=== PATIENT | male | born 1990 | race Hispanic/Latino ===

== ENCOUNTER 2017-06-06 10:47 | Emergency (ER) | payer SELFPAY ==
[~2017-06-06] VITALS: Ht 165.1 cm; Wt 72.7 kg
--- NOTE | 2017-06-06 11:05 | ED.REPORT ---
HPI-Chest Pain Under 40 Date of Service Jun 06, 2017 ED Provider: Rey Bess DO The pt is a 26 y/o male presenting to the ED from complaining of chest pain onset two days ago. The pain is intermittent, not associated w/ activity, is rated as a 3-4/10, and he describes it feeling like something fell. The pt does not feel like there is food stuck in his esophagus. Nursing Notes Stated Complaint: CHEST PAIN Chief Complaint: Chest pain Nursing Notes Reviewed: Yes Allergies: Coded Allergies: No Known Allergies (Unverified Allergy, Unknown, 06/06/17) Scheduled Famotidine (Pepcid) 40 Mg Tablet 40 MG PO BID General Time Seen by MD: 10:54 Chief Complaint Chest pain Hx Obtained From: Patient Arrived By: Walk-in Sudden in Onset?: Yes Onset Occurred: 2 days ago Symptom Duration: Since onset Recent Healthcare: No recent hospitalization, Recent doctor visit Similar Sx Previous: No Past Medical History Past Medical History None reported Past Surgical History None reported Family History No family hx of heart disease Smoking History Current Some Day Smoker Social History Alcohol Use: "Social" Drug Use: Denies drug use Ambulatory Status Independent Review of Systems Cardiovascular: Reports: Chest pain Complete sys rev & neg: except as marked. Physical Exam Initial Vital Signs Vital Signs (First) Date Time Temp Pulse Resp B/P Pulse Ox O2 Delivery O2 Flow Rate FiO2 06/06/17 11:10 36.7 73 22 132/84 Room Air 06/06/17 12:00 100 Initial VS: Reviewed Head / Eyes: Atraumatic, Normocephalic, PERRL ENT: Mucous membranes moist, Conjunctiva normal, No scleral icterus Neck: Supple, Non-tender, Full range of motion Extremities: Vascular intact, Neuro intact, No swelling, No tenderness Skin: Warm, Dry, No cyanosis Neurologic: Alert, Oriented, Nonfocal Psychiatric: Mood/affect normal, Behavior normal, Normal thought content General/Constitutional: Awake, Alert Respiratory / Chest: Atraumatic, Breath sounds NL, Breath sounds = bilat Cardiovascular: Heart rate NL, Regular rhythm, Heart sounds NL Interpretation & Diagnostics Lab Results Interpretation Result Diagram: 06/06/17 1126 06/06/17 1126 Test 06/06/17 11:26 White Blood Count 5.9th/mm3 (3.8-10.1) Red Blood Count 4.44mil/mm3 (4.40-5.80) Hemoglobin 14.8g/dL (13.8-17.2) Hematocrit 41.5% (41.0-50.0) Mean Corpuscular Volume 93.5fL (81-100) Mean Corpuscular Hemoglobin 33.3pg (27.0-35.0) Mean Corpuscular Hemoglobin Concent 35.7% (32.0-37.0) Red Cell Distribution Width 12.3% (12.3-15.4) Platelet Count 332bil/L (150-400) Neutrophils (%) (Auto) 59.9% (40-74) Lymphocytes (%) (Auto) 28.3% (14-46) Monocytes (%) (Auto) 8.2% (4-12) Eosinophils (%) (Auto) 3.1% (0-5) Basophils (%) (Auto) 0.3% (0-3) Sodium Level 140mEq/L (134-144) Potassium Level 3.9mEq/L (3.5-5.2) Chloride Level 103mEq/L (97-108) Carbon Dioxide Level 22mmol/L (18-29) Blood Urea Nitrogen 14mg/dL (6-20) Creatinine 0.76mg/dL (0.76-1.27) Estimat Glomerular Filtration Rate 131mL/min (>59) Glucose Level 82mg/dL (60-99) Calcium Level 8.8mg/dL (8.5-10.1) Magnesium Level 1.9mg/dL (1.6-2.6) Total Bilirubin 0.4mg/dL (0.0-1.2) Aspartate Amino Transf (AST/SGOT) 29U/L (0-50) Alanine Aminotransferase (ALT/SGPT) 22U/L (0-44) Alkaline Phosphatase 67U/L (25-150) Troponin T 0.010ug/L (0.0-0.011) Total Protein 7.3g/dL (6.4-8.4) Albumin 4.4g/dL (3.4-5.0) ECG Interpretation ECG Interpretation: Rate [address] elevation, probable normal early repol pattern Time: 11:19 Interpreted by: ED physician X-Ray Chest Interpretation Chest Xray Interpretation: IMPRESSION: No acute cardiopulmonary disease process. Dictated by: Joy Bowers MD, PhD on 06/06/2017 at 10:34 Approved by: Joy Bowers MD, PhD on 06/06/2017 at 10:34 View: Portable, 1 view Interpretation / Wet Read by: Interpret - Radiologist Re-Eval/Medical Decision Re-Evaluation/Progress : Time of Eval: 12:44 Re-Evaluation/Progress Note: Pt rechecked. Informed pt of plan for treatment. Pt understands and agrees with plan for treatment. F/U instructions and RTER warnings given. All questions addressed. Counseled Regarding: Diagnosis, Lab results, Need for follow-up, When/why to return to ED Discharge & Departure Primary Impression: Non-cardiac chest pain Disposition: Home Discharge Condition All VS Reviewed: Yes Condition: Stable Additional Instructions: The tests all looked normal. You are not having a problem with your heart. Please take the medication as prescribed and follow up with the primary care provider attached. Please stay away from coffee, spicy foods, soda, alcohol, and tobacco. Return to the ER as needed for worsening symptoms. -- Los estudios todos salieron normales. Usted no tiene problema del asif. Favor de kathi las medicina charla indicada y acude seguimiento con el medico de cabecera lo cual el nombre sigue. Evite kathi cafe, comidas picantes,soda, alcohol y tabaco. Regrese a la rene de emergencias charla necesite para sntomas que empeoran. Referrals: Sonia Healy MD Scribe Attestation Portions of this note were transcribed by Ger Dowd. I, Dr. Bess personally performed the history, physical exam and medical decision-making; I reviewed and confirmed the accuracy of the information in the transcribed note. copies to: Sonia Healy MD, Timothy S DO Jun 06, 2017 11:05 Ger Dowd Jun 06, 2017 11:30
[2017-06-06 11:10] VITALS: BP 132/84; PULSE 73; RESP 22
[2017-06-06] MEDS ORDERED: Ondansetron 2 mg/mL 2 mL Inj IVPUSH ONE (11:15)
[2017-06-06] MEDS ORDERED: LidocaineVisc 2%:Antacid 1:1 10 mL Syringe PO ONE (11:15)
[2017-06-06] MEDS ORDERED: Ketorolac 15 mg/mL Inj IVPUSH ONE (11:15)
[2017-06-06 11:34] LABS: BASOPHILS % (AUTO) 0.3 % (0-3); EOSINOPHILS % (AUTO) 3.1 % (0-5); MONOCYTES % (AUTO) 8.2 % (4-12); Mean Corpuscular Hemoglobin 33.3 pg (27.0-35.0); Mean Corpuscular Volume 93.5 fL (81-100); NEUTROPHILS % (AUTO) 59.9 % (40-74); Platelet Count 332 bil/L (150-400)
--- NOTE | 2017-06-06 11:36 | DRSVH ---
PROCEDURE: X-RAY CHEST ONE VIEW, PORTABLE ([id number]) INDICATIONS: chest pain TECHNIQUE: One view of the chest was acquired. COMPARISON: None. FINDINGS: Surgical changes and devices: None. Lungs and pleura: No pleural effusions or pneumothorax. Lungs are clear. Mediastinum: Mediastinal contours appear normal. Heart size is normal. Bones and chest wall: No suspicious bony lesions. Overlying soft tissues appear unremarkable. IMPRESSION: No acute cardiopulmonary disease process. Dictated by: Joy Bowers MD, PhD on 06/06/2017 at 10:34 Approved by: Joy Bowers MD, PhD on 06/06/2017 at 10:34
[2017-06-06 11:52] LABS: TROPONIN T 0.01 ug/L (0.0-0.011)
[2017-06-06 12:00] VITALS: BP 131/72; RESP 17; O2SAT 100
[2017-06-06 12:03] LABS: Magnesium 1.9 mg/dL (1.6-2.6)
[2017-06-06] MEDS ORDERED: FAMO40TA72 PO (12:43)
[2017-06-06 13:24] VITALS: BP 129/74; PULSE 68; RESP 17; O2SAT 100
== END 2017-06-06 13:20 | disposition home or self-care (01) ==
LOC: EDUNIT# 10:47 → SED 10:47 → EDBD 10:47 → SED 13:20
DX: R07.89 Other chest pain (principal); F17.200 Nicotine dependence, unspecified, uncomplicated
CPT/HCPCS: 36415; 71010; 80053; 83735; 84484; 85025; 93005; 96374; 99285; J1885